=== PATIENT | female | born 1965 | race Caucasian/White ===

== ENCOUNTER 2018-10-22 15:50 | Emergency (ER) | payer OTHER ==
--- NOTE | 2018-10-22 16:15 | EDM.PDOC ---
ED HPI GENERAL MEDICAL PROBLEM - General Chief Complaint: General Stated Complaint: slipped at work Time Seen by Provider: 10/22/18 15:54 Source of Information: Reports: Patient History Limitations: Reports: No Limitations - History of Present Illness INITIAL COMMENTS - FREE TEXT/NARRATIVE: HISTORY AND PHYSICAL: History of present illness: Patient is a 53-year-old female who presents to the ED today after falling at work. 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 She states that since then she has had a headache and low back pain. She rates her headache a 7 out of 10 and her low back pain a 4 out of 10. She states she has not taken anything for her pain. Patient states that this occurred 10 minutes prior to arrival to the ED. She denies any loss of consciousness on this event occurred. She denies any visual changes since this event. Patient states that she came in because the headache followed suit of the injury. Patient denies fever, chills, loss of consciousness, dizziness, lightheadedness , visual changes, nausea, vomiting, abdominal pain, shortness of breath, difficulties breathing, abdominal pain, burning with urination, or all other GI , , cardiovascular, or respiratory symptoms. Patient does have a history of migraine and anxiety. Review of systems: As per history of present illness and below otherwise all systems reviewed and negative. Past medical history: As per history of present illness and as reviewed below otherwise noncontributory. Surgical history: As per history of present illness and as reviewed below otherwise noncontributory. Social history: See social history for further information Family history: As per history of present illness and as reviewed below otherwise noncontributory. Physical exam: General: Patient is transgender male but identifies is a female who is alert, oriented, and in no acute distress. She is lying comfortably on exam table. She does prefer the lights off in the exam room. She appears older than stated age. HEENT: Atraumatic, normocephalic, pupils equal and reactive bilaterally, negative for conjunctival pallor or scleral icterus, mucous membranes moist, TMs normal bilaterally, throat clear, neck supple, nontender, trachea midline. No drooling or trismus noted. No meningeal signs. No hot potato voice noted. Lungs: Clear to auscultation, breath sounds equal bilaterally, chest nontender. Heart: S1S2, regular rate and rhythm without overt murmur Abdomen: Soft, nondistended, nontender. Negative for masses or hepatosplenomegaly. Negative for costovertebral tenderness. Pelvis: Stable nontender. Genitourinary: Deferred. Rectal: Deferred. Skin: Severely tanned. Intact, warm, dry. No lesions or rashes noted. Extremities/musculoskeletal: Patient does have mild pain to palpation of the thoracic and lumbar spine and surrounding musculature. No step-offs, obvious deformities or crepitus noted. Denies any urinary or fecal incontinence. Denies any numbness or tingling to the distal extremities. Patient is ambulatory into the emergency room without any difficulty or deficits. Strong peripheral pulses bilaterally. She is negative for cords or calf pain. Neurovascular unremarkable. Neuro: Awake, alert, oriented. Cranial nerves II through XII unremarkable. Cerebellum unremarkable. Motor and sensory unremarkable throughout. Exam nonfocal. Notes: Patient is a transgender male but identifies a female. Patient does not have any neuro deficits is on exam today but she does have pain to palpation of the thoracic and lumbar spine and surrounding musculature. We'll perform a head CT as well as imaging of the thoracic and lumbar spine. CT shows no acute intracranial findings. X-ray of thoracic and lumbar spine shows no acute osseous abnormality. Patient was offered IV medications to treat her headache but she declines and prefers an oral. Supportive care measures were reviewed and discussed. Voices understanding and is agreeable to plan of care. Denies any further questions or concerns at this time. Diagnostics: Head CT, thoracic and lumbar spine x-ray Therapeutics: Toradol 10mg PO Prescription: None Impression: 1. Head injury 2. Back injury Plan: 1. You can alternate Tylenol and ibuprofen as discussed and as directed for pain and discomfort. 2. You can alternate heat and ice 15 minutes on 20 minutes off for pain. 3. Follow up with her primary care provider as discussed. 4. Return to the ED as needed and as discussed. Definitive disposition and diagnosis as appropriate pending reevaluation and review of above. head Pain Score (Numeric/FACES): 7 - Related Data Allergies Allergy/AdvReac Type Severity Reaction Status Date / Time No Known Allergies Allergy Verified 10/22/18 15:55 Home Meds: Home Meds medroxyPROGESTERone [Provera] 2.5 mg PO DAILY 02/28/18 [History] Acetaminophen/Butalbital/Caff [Fioricet 325-50-40 MG] 1 - 2 tab PO Q4H PRN 07/12 [History] Estradiol [Estrace] 2 mg PO DAILY 07/12/18 [History] diazePAM [Valium] 5 mg PO ASDIRECTED PRN 07/12/18 [History] Past Medical History HEENT History: Reports: Other (See Below) Other HEENT History: uses reading glasses, has upper and lower dentures Cardiovascular History: Reports: None Respiratory History: Reports: None Gastrointestinal History: Reports: None Genitourinary History: Reports: [employer]al [employer] History: Reports: None Musculoskeletal History: Reports: Back Pain, Chronic, Fracture, Osteoarthritis Other Musculoskeletal History: hx of fx arm and wrist Neurological History: Reports: Migraines Psychiatric History: Reports: Anxiety Endocrine/Metabolic History: Reports: None Hematologic History: Reports: None Immunologic History: Reports: None Oncologic (Cancer) History: Reports: None Dermatologic History: Reports: None - Infectious Disease History Infectious Disease History: Reports: Chicken Pox, Mumps - Past Surgical History Head Surgeries/Procedures: Reports: None HEENT Surgical History: Reports: None Cardiovascular Surgical History: Reports: None Respiratory Surgical History: Reports: None GI Surgical History: Reports: None Female Surgical History: Reports: Breast Implant, Lithotripsy/ESWL, Other ( See Below) Other Female Surgeries/Procedures: hx of gender reassignment surgery Endocrine Surgical History: Reports: None Neurological Surgical History: Reports: None Musculoskeletal Surgical History: Reports: None Oncologic Surgical History: Reports: None Dermatological Surgical History: Reports: None Social & Family History - Family History Family Medical History: Noncontributory - Tobacco Use Smoking Status *Q: Current Every Day Smoker Years of Tobacco use: 16 Packs/Tins Daily: 0.2 - Caffeine Use Caffeine Use: Reports: Coffee, Soda, Tea - Recreational Drug Use Recreational Drug Use: No ED ROS GENERAL - Review of Systems Review Of Systems: ROS reveals no pertinent complaints other than HPI. ED EXAM, GENERAL - Physical Exam Exam: See Below (See dictation) Course - Vital Signs Last Recorded V/S: Last Vital Signs Temp 96.4 F 10/22/18 15:55 Pulse 95 10/22/18 15:55 Resp 18 10/22/18 15:55 BP 123/79 10/22/18 15:55 Pulse Ox 99 10/22/18 15:55 - Orders/Labs/Meds Orders: Active Orders 24 hr Category Date Time Status Head wo Cont [CT] Stat Exams 10/22/18 16:07 Taken Meds: Medications Discontinued Medications Generic Name Dose Route Start Last Admin Trade Name Dontrell PRN Reason Stop Dose Admin Ketorolac Tromethamine 10 mg 10/22/18 17:36 Toradol PO 10/22/18 17:37 ONETIME ONE Departure - Departure Time of Disposition: 17:38 Disposition: Home, Self-Care 01 Clinical Impression: Head injury Qualifiers: Encounter type: initial encounter Qualified Code(s): S09.90XA - Unspecified injury of head, initial encounter Back injury Qualifiers: Encounter type: initial encounter Qualified Code(s): S39.92XA - Unspecified injury of lower back, initial encounter - Discharge Information Referrals: PCP,Unknown [Primary Care Provider] - Forms: ED Department Discharge Additional Instructions: The following information is given to patients seen in the emergency department who are being discharged to home. This information is to outline your options for follow-up care. We provide all patients seen in our emergency department with a follow-up referral. The need for follow-up, as well as the timing and circumstances, are variable depending upon the specifics of your emergency department visit. If you don't have a primary care physician on staff, we will provide you with a referral. We always advise you to contact your personal physician following an emergency department visit to inform them of the circumstance of the visit and for follow-up with them and/or the need for any referrals to a consulting specialist. The emergency department will also refer you to a specialist when appropriate. This referral assures that you have the opportunity for follow-up care with a specialist. All of these measure are taken in an effort to provide you with optimal care, which includes your follow-up. Under all circumstances we always encourage you to contact your private physician who remains a resource for coordinating your care. When calling for follow-up care, please make the office aware that this follow-up is from your recent emergency room visit. If for any reason you are refused follow-up, please contact the [facility] Emergency Department at and asked to speak to the emergency department charge nurse. AGUST[facility]N [facility] [address] [place] [address] [facility] [place] [address] [place] [id number] 1. You can alternate Tylenol and ibuprofen as discussed and as directed for pain and discomfort. 2. You can alternate heat and ice 15 minutes on 20 minutes off for pain. 3. Follow up with her primary care provider as discussed. 4. Return to the ED as needed and as discussed. - My Orders Last 24 Hours: My Active Orders 10/22/18 16:07 Head wo Cont [CT] Stat - Assessment/Plan Last 24 Hours: My Active Orders 10/22/18 16:07 Head wo Cont [CT] Stat
--- NOTE | 2018-10-22 17:30 | CR ---
INDICATION: Patient fell today. Pain. COMPARISON: None available. TECHNIQUE: AP and lateral views of the thoracic spine were obtained along with a cross-table swimmer`s view of the cervicothoracic junction for a total of three views. FINDINGS: There is no sign of fracture or subluxation. The intervertebral discs are normal in height. The vertebral bodies are normal in height and are in anatomic alignment. The visualized portions of the chest are normal in appearance. IMPRESSION: Normal thoracic spine. Dictated by Adalberto Moon MD @ Oct 22 2018 5:28PM Signed by Dr. Adalberto Moon @ Oct 22 2018 5:29PM
--- NOTE | 2018-10-22 17:32 | CR ---
HISTORY: Pain after fall COMPARISON: None available. FINDINGS: The lumbar spine was examined with AP, lateral, and lateral spot views for a total of three views. There is mild scoliosis of the lumbar spine convex towards the left with the apex at the L3 level. There is no sign of fracture or subluxation. The vertebral bodies are normal in height and they are in anatomic alignment. The disc spaces are normal in height as well. The visualized bony pelvis and bowel gas pattern are normal in appearance. IMPRESSION: Normal lumbar spine. Dictated by Adalberto Moon MD @ Oct 22 2018 5:29PM Signed by Dr. Adalberto Moon @ Oct 22 2018 5:30PM
[2018-10-22] MEDS ORDERED: Ketorolac 10 MG Tab PO ONE (17:36)
--- NOTE | 2018-10-22 17:45 | CT ---
INDICATION: Injury. Pain TECHNIQUE: CT head without contrast. COMPARISON: None available FINDINGS: The ventricles and sulci are within normal limits for the patient`s age. There is no mass effect or midline shift. There is no loss of cheema-white differentiation. There is no evidence of a gross acute intracranial hemorrhage. There are small foci of fat attenuation along the posterior aspect of the superior sagittal sinus and near the torcula. No acute calvarial fracture is seen. Scattered small scalp calcifications are nonspecific. The visualized paranasal sinuses and mastoid air cells are clear. The visualized orbits are within normal limits. IMPRESSION: No evidence of an acute intracranial hemorrhage, mass effect or loss of cheema-white differentiation. Small foci of fat along be posterior midline, near the superior sagittal sinus and torcula, which could represent an atypical lipoma, although sequela of a ruptured small dermoid cyst can present similarly. Dictated by Aron Ayala MD @ 10/22/2018 5:44:17 PM Please note that all CT scans at this facility use dose modulation, iterative reconstruction, and/or weight-based dosing when appropriate to reduce radiation dose to as low as reasonably achievable. Dictated by: Aron Ayala MD @ 10/22/2018 17:44:22 (Electronically Signed)
== END 2018-10-22 18:00 | disposition home or self-care (01) ==
LOC: MW.ED 15:50
DX: S09.90XA Unspecified injury of head, initial encounter (principal); S39.92XA Unspecified injury of lower back, initial encounter; M19.90 Unspecified osteoarthritis, unspecified site; F17.210 Nicotine dependence, cigarettes, uncomplicated; W01.198A Fall on same level from slipping, tripping and stumbling with subsequent striking against other object, initial encounter; Y99.0 Civilian activity done for income or pay
CPT/HCPCS: 70450; 72072; 72100; 99284; A9270